=== PATIENT | female | born 1995 | race Caucasian/White ===

== ENCOUNTER 2020-11-11 15:40 | Emergency (ER) | payer MEDICAID ==
[~2020-11-11] VITALS: Ht 154.9 cm; Wt 65.0 kg
[2020-11-11] MEDS ORDERED: ACETAMINOPHEN 325MG TABLET PO ONE (18:15)
[2020-11-11 20:34] VITALS: BP 126/71
== END 2020-11-11 20:36 | disposition home or self-care (01) ==
LOC: ER 15:40
DX: F41.1 Generalized anxiety disorder (principal)
CPT/HCPCS: 93005; 99283

== ENCOUNTER 2023-02-08 15:21 | Emergency (ER) | payer MEDICAID ==
[~2023-02-08] VITALS: Ht 154.9 cm; Wt 69.0 kg
[2023-02-08 15:42] VITALS: O2SAT 100
[2023-02-08 17:59] LABS: CLARITY URINE CLOUDY (CLEAR); COLOR URINE RED (YELLOW); GLUCOSE URINE NEGATIVE (NEGATIVE); KETONES URINE NEGATIVE (NEGATIVE); LEUKOCYTE ESTERASE URINE TRACE (NEGATIVE); NITRITE URINE NEGATIVE (NEGATIVE); OCCULT BLOOD URINE 3+ (NEGATIVE); PROTEIN URINE 2+ (NEGATIVE); SPECIFIC GRAVITY URINE 1.006 (1.005-1.030); UROBILINOGEN URINE 0.2 E.U./dL (0.2-1.0)
[2023-02-08 18:45] LABS: BACTERIA URINE 2+; SQUAMOUS EPITHELIAL CELL URINE 1+ /lpf (RARE/1+)
[2023-02-08 18:46] LABS: RBC URINE TNTC /hpf (0-2); WBC URINE 0-2 /hpf (0-2)
[2023-02-08] MEDS ORDERED: NITR-87 MT (19:28)
[2023-02-08 19:30] LABS: HEMATOCRIT 35.4 % (36.0-48.0); HEMOGLOBIN 12.4 g/dL (12.0-16.0); MEAN CORPUSCULAR VOLUME 91.6 fL (81.0-99.0); PLATELET 129 x1000/uL (130-400); RED BLOOD CELL COUNT 3.86 mill/uL (4.2-5.4); RED CELL DISTRIBUTION WIDTH 12.5 % (11.6-14.6); WHITE BLOOD COUNT 5.8 x1000/uL (4.5-11.0)
[2023-02-08 19:41] LABS: CARBON DIOXIDE 31 mEq/L (21-32); CHLORIDE 104 mEq/L (98-107); CREATININE 0.7 mg/dL (0.6-1.0); GLUCOSE 115 mg/dL (70-105); POTASSIUM 3.5 mEq/L (3.5-5.1); SODIUM 139 mEq/L (136-145)
[2023-02-08 19:58] LABS: UREA NITROGEN BLOOD < 5 mg/dL (9-23)
[2023-02-08 20:56] VITALS: BP 132/74; PULSE 98; RESP 16; TEMP 98.6
== END 2023-02-08 21:00 | disposition home or self-care (01) ==
LOC: ER 15:21
DX: N39.0 Urinary tract infection, site not specified (principal)
CPT/HCPCS: 36415; 80048; 81003; 81025; 85027; 99283